=== PATIENT | female | born 1990 | race Caucasian/White ===

== ENCOUNTER 2016-07-26 21:57 | Emergency (ER) | payer SELFPAY ==
[~2016-07-26] VITALS: Ht 165.1 cm; Wt 79.0 kg
[2016-07-26 23:25] VITALS: BP 115/84
== END 2016-07-26 23:25 | disposition home or self-care (01) ==
LOC: ER 21:57
DX: B99.9 Unspecified infectious disease (principal); H10.89 Other conjunctivitis; H00.031 Abscess of right upper eyelid
CPT/HCPCS: 99283